=== PATIENT | male | born 1940 | race Caucasian/White ===

== ENCOUNTER 2020-01-01 21:46 | Inpatient (IN) | payer OTHER ==
[~2020-01-01] VITALS: Ht 170.2 cm; Wt 84.8 kg
[2020-01-01 22:12] VITALS: BP_SYST 127
--- NOTE | 2020-01-01 22:12 | NUR ---
Placed in room 04 . Placed on customer support analyst, blood pressure machine and pulse oximeter. To gown for exam. Side rails up. Report given to ABHILASH Chung
--- NOTE | 2020-01-01 22:28 | NUR ---
Dr. Sabillon bedside for pt eval
[2020-01-01] MEDS ORDERED: NACL 0.9% 1,000 ML IV ONE (22:29)
[2020-01-01] MEDS ORDERED: cefTRIAXone 1 GM IVPB PREMIX 50 ML IV ONE (22:30)
--- NOTE | 2020-01-01 22:43 | NUR ---
Pt BIB family to ED having history of 20% ejection fraction, stage III kidney failure, and non-verbal who was BIB by son in law for a 1 day history of gradual onset, mild shortness of breath. Symptoms associated with swelling to BLE. Patient was recently seen at [facility] for similar symptoms and was recently discharged No other complaints and or injuries noted VSS no s/s of acute distress Resting on gurney rails up
[2020-01-01 23:35] LABS: BASOPHILS % (AUTO) 1.1 % (0.0-2.0); EOSINOPHILS # (AUTO) 0.1 K/uL (0.0-0.4); EOSINOPHILS % (AUTO) 3.7 % (0.0-4.0); HEMATOCRIT 33.5 % (36-54); HEMOGLOBIN 10.9 g/dL (14.0-18.0); LYMPHOCYTES % (AUTO) 23.6 % (20.5-51.5); MEAN CORPUSCULAR HEMOGLOBIN 28 pg (27-31); MEAN CORPUSCULAR HGB CONC 33 % (32-36); MEAN CORPUSCULAR VOLUME 86 fL (79.0-98.0); MONOCYTES # (AUTO) 0.3 K/uL (0.0-1.0); MONOCYTES % (AUTO) 8.4 % (1.7-9.3); NEUTROPHILS # (AUTO) 2.6 K/uL (1.8-7.7); NEUTROPHILS % (AUTO) 63.2 % (40.0-70.0); PLATELET COUNT (AUTO) 177 K/uL (130-430); WHITE BLOOD COUNT (AUTO) 4.1 K/uL (4.8-10.8)
[2020-01-01 23:53] LABS: ANION GAP 9 (5-15); CALCIUM 8.6 mg/dL (8.4-11.0); CHLORIDE 101 mmol/L (98-107); GLUCOSE 160 mg/dL (70-99); POTASSIUM 4.8 mmol/L (3.5-5.1); SODIUM SERUM 135 mmol/L (136-145); UREA NITROGEN, BLOOD 49 mg/dL (8-21)
--- NOTE | 2020-01-02 | NUR ---
pt family member bedside for support, VSS no s/s of acute distress Resting on gurney rails up
[2020-01-02 00:06] LABS: ALANINE AMINOTRANSFERASE 27 U/L (12-78); ALBUMIN 3.2 g/dL (3.4-4.8); AMYLASE 53 U/L (0-100); ASPARTATE AMINOTRANSFERASE 40 U/L (10-37); LIPASE 159 U/L (73-393); TOTAL BILIRUBIN 0.6 mg/dL (0.0-1.0)
[2020-01-02] MEDS ORDERED: SACU1TAB7 PO (00:15)
[2020-01-02] MEDS ORDERED: COR6.25 PO (00:15)
[2020-01-02] MEDS ORDERED: ASPI-1153 PO (00:18)
[2020-01-02] MEDS ORDERED: CLOP75TA32 PO (00:18)
[2020-01-02] MEDS ORDERED: FURO-150 PO (00:18)
--- NOTE | 2020-01-02 00:19 | NUR ---
Medication reconciliation completed with information provided by family. Any prior medication reconciliation on file was reviewed and corrected.
[2020-01-02 00:43] LABS: INR 1.1 (0.80-1.20); PROTHROMBIN TIME 11.4 SECS (9.5-12.5)
--- NOTE | 2020-01-02 01:20 | NUR ---
Pt family verbalized "feeling a little better."
[2020-01-02] MEDS ORDERED: FUROSEMIDE 40 MG/4 ML VIAL IVP ONE ×2 (01:30→09:30)
[2020-01-02] MEDS ORDERED: ACETAMINOPHEN 325 MG TABLET PO PRN (01:45)
--- NOTE | 2020-01-02 02:11 | NUR ---
ADMISSION: The patient, SHAHIDA DONNELLY, 79 y/o, M admitted by DR LACKEY , with the diagnosis of CHF EXACERBATION AND ELEVATED TROPONIN to room 133 A , family at bedside .
--- NOTE | 2020-01-02 02:11 | NUR ---
Patient will be admitted to care of Dr. Perkins. Admitted to Tele unit. Will go to room 133. Belongings list completed. Complete and up to date summary report printed. SBAR report to be given at bedside with opportunity for questions.
--- NOTE | 2020-01-02 02:11 | NUR ---
Transfer to Telemetry via ACLS protocol. Licensed nurse present. IV present no signs or symptoms of infiltration.
[2020-01-02 02:18] VITALS: BP_SYST 117
--- NOTE | 2020-01-02 02:30 | NUR ---
INITIAL NOTES: PT IS SLEEPING , EASILY AROUSABLE TO NAME CALLED ; PER FAMILY PT IS NONVERBAL , SYRIAC SPEAKING ORIGINALLY ; ASSESSMENT DONE ; PT IS ON ROOM AIR , VITALS ARE STABLE ; RECEIVED INFORMATION FROM SON IN LAW AIDE ; IV TO THE LEFT HAND 22 G , NO S/S OF ANY INFILTRATION NOTICED ; BED IN LOW AND LOCK POSITION , CALL DIAZ IN REACH ; WILL CONTINUE TO MONITOR PT . 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 SON IN LAW TOOK PTS BELONGINGS TO HOME EXCEPT JACKET .
[2020-01-02 03:47] LABS: BILIRUBIN,URINE NEGATIVE (NEGATIVE); BLOOD, URINE 3+ (NEGATIVE); CLARITY/URINE CLEAR (CLEAR); COLOR,URINE YELLOW (YELLOW); GLUCOSE,URINE NEGATIVE (NEGATIVE); KETONES,URINE NEGATIVE (NEGATIVE); LEUKOCYTE ESTERASE ,URINE TRACE (NEGATIVE); NITRITE, URINE NEGATIVE (NEGATIVE); PROTEIN URINE 2+ (NEGATIVE); UROBILINOGEN,URINE 0.2 (0.2-1.0)
[2020-01-02 03:57] LABS: BACTERIA,URINE MODERATE /HPF (None Seen); WBC,URINE >100 /HPF (0-3)
--- NOTE | 2020-01-02 04:10 | NUR ---
Consultation Paged Reason for Consultation: Elevated Troponin Was consult called: Y Person who was notified: Destiney Consulting Physician: Blayne Carrion Special Events Driver Ordering Physician: Dr. Perkins
--- NOTE | 2020-01-02 04:40 | NUR ---
RN NOTES: PT IS SLEEPING , NOT IN ANY ACUTE DISTRESS ; WILL CONTINUE TO MONITOR PT .
--- NOTE | 2020-01-02 06:00 | NUR ---
RN ROUNDS: PT IS SLEEPING , RESPIRATION IS EVEN AND NON LABORED ; WILL CONTINUE TO MONITOR PT .
--- NOTE | 2020-01-02 06:41 | NUR ---
PERINEAL CARE : PT IS INCONTINENT WITH URINE , PT CLEANED , LINEN ,JEAN AND GOWN CHANGED ; PT MADE COMFORTABLE ; WILL CONTINUE TO MONITOR PT .
--- NOTE | 2020-01-02 07:20 | NUR ---
INITIAL NOTE PT AWAKE, RESTING IN BED. BLOOD DRAW BEING DONE AT BEDSIDE. IV SALINE LOCKED. CALL LIGHT WITHIN REACH, BED IN LOW AND LOCKED POSITION WITH BED ALARM ON.
--- NOTE | 2020-01-02 07:20 | NUR ---
CLOSING NOTES: REPORT GIVEN TO RN AT BEDSIDE ; ALL NEEDS ATTENDED ; NOT IN ANY ACUTE DISTRESS.
[2020-01-02 08:00] VITALS: BP_SYST 128
[2020-01-02 08:16] LABS: ANION GAP 8 (5-15); CALCIUM 8.3 mg/dL (8.4-11.0); CHLORIDE 101 mmol/L (98-107); GLUCOSE 162 mg/dL (70-99); POTASSIUM 4.3 mmol/L (3.5-5.1); SODIUM SERUM 135 mmol/L (136-145); UREA NITROGEN, BLOOD 47 mg/dL (8-21)
--- NOTE | 2020-01-02 08:56 | NUR ---
DR. ETIENNE/CRITICAL LAB MD AT BEDSIDE EXAMINING PT. INFORMED MD OF CRITICAL TROPONIN 0.152, TROPONIN IS TRENDING DOWN. MD TO PUT IN NEW ORDERS.
[2020-01-02] MEDS: cefTRIAXone 1 GM in D5W 50 ML IV SCH (08:58)
[2020-01-02] MEDS ORDERED: CARVEDILOL 6.25 MG TABLET (COREG) PO ONE (09:00)
[2020-01-02] MEDS ORDERED: ASPIRIN 81 MG TABLET(ECOTRIN) PO ONE (09:00)
[2020-01-02] MEDS ORDERED: CLOPIDOGREL BISULFATE 75 MG TABLET PO ONE (09:00)
--- NOTE | 2020-01-02 09:04 | NUR ---
Nutrition Update Dean Scale 15 noted. Pt admitted for CHF, elevated troponin. Diet: 2 gm Na, chopped BMI: 31.3 kg/m2 RD to follow per nutrition care standards.
--- NOTE | 2020-01-02 09:30 | NUR ---
RN ROUNDS NO CHANGE IN ASSESSMENT. WILL CONTINUE TO MONITOR.
--- NOTE | 2020-01-02 09:44 | NUR ---
2D ECHO BEING DONE AT BEDSIDE PT AWAKE, NO ACUTE DISTRESS NOTED, DOSE OF LASIX IVP ADMINISTERED.
[2020-01-02] MEDS ORDERED: FUROSEMIDE 40 MG TABLET PO ONE (09:45)
--- NOTE | 2020-01-02 10:43 | NUR ---
DR. DARYA REBOLLEDO AT BEDSIDE EXAMINING PT. WOULD LIKE FOR FAMILY TO SIGN CONSENT TO DISCLOSE OF HEALTH RECORDS FROM [facility]. WILL ATTEMPT TO REACH DAUGHTER.
--- NOTE | 2020-01-02 11:30 | NUR ---
DR. LACKEY/CRITICAL LAB SPOKE WITH MD AT NURSES STATION, INFORMED MD OF CRITICAL TROPONIN 0.147. MD TO CONTINUE CURRENT POC.
--- NOTE | 2020-01-02 11:35 | NUR ---
RN ROUNDS READJUSTED GOWN, REPOSITIONED PT SEMI FOWLERS. NO ACUTE DISTRESS NOTED. PT RESTING QUIETLY.
[2020-01-02 12:57] VITALS: BP_SYST 118
--- NOTE | 2020-01-02 13:45 | NUR ---
RN ROUNDS PT RESTING QUIETLY, NO CHANGE IN ASSESSMENT, WILL CONTINUE TO MONITOR.
--- NOTE | 2020-01-02 14:50 | NUR ---
BACK FROM OR RECEIVED PT VIA [employer]. PT RUNNING FEVER 100.5. PT HAS ICE PACKS. IVF INFUSING WELL. AT BEDSIDE. MOVED PT TO ROOM 126A Addendum: 01/02/20 at 1551 by Cinthya Carter RN DISREGARD NOTE, WRONG PT ENTRY.
--- NOTE | 2020-01-02 15:40 | NUR ---
INCONTINENT OF URINE CHANGED LINEN AND PATIENT. REPOSITIONED FOR COMFORT.
[2020-01-02 16:17] VITALS: BP_SYST 121
--- NOTE | 2020-01-02 17:40 | NUR ---
RN ROUNDS DAUGHTER AT BEDSIDE, DAUGHTER SIGNED CONSENT TO RECEIVE HEALTH RECORDS FROM [facility]. PT AWAKE, NO ACUTE DISTRESS NOTED
--- NOTE | 2020-01-02 18:32 | NUR ---
CLOSING NOTE PT AWAKE, NO ACUTE DISTRESS NOTED, FAMILY AT BEDSIDE. FAMILY STATES PT IS CONTENT AND ENJOYS THE FOOD. PT DENIES ANY PAIN OR DISCOMFORT AT THIS TIME. IV SALINE LOCKED. CALL LIGHT WITHIN REACH, BED IN LOW AND LOCKED POSITION WITH BED ALARM ON.
--- NOTE | 2020-01-02 19:30 | NUR ---
Opening notes Received report. Patient is resting in bed, no signs of distress noted. Breathing even and unlabored. IV patent and intact, no signs of infiltration noted. No needs at this time. Daughters at the bedside. call light with the patient. Safety precautions in place.
[2020-01-02 20:00] VITALS: BP_SYST 108
--- NOTE | 2020-01-02 21:30 | NUR ---
Medications given. Educated the action and side effects of medication. Patient tolerated well. Patient ambulated to bathroom with assist to urinate. Patient back in bed. Call light with the patient. Safety precautions in place.
[2020-01-02] MEDS: CARVEDILOL 6.25 MG TABLET (COREG) PO SCH (21:52)
[2020-01-03 00:26] VITALS: BP_SYST 116
--- NOTE | 2020-01-03 00:30 | NUR ---
Ambulated to bathroom with assistance to urinate. Patient back in bed. No other needs. Call light with the patient. Safety precautions in place. Call light with the patient. Safety precautions in place.
--- NOTE | 2020-01-03 02:53 | NUR ---
Pain Patient complaining of pain to lower legs. PRN pain medication given. Educated the action and side effects of medication. Patient tolerated well. Patient sitting up in bed. Call light with the patient. Safety precautions in place.
--- NOTE | 2020-01-03 04:21 | NUR ---
Ambulated to bathroom with assist to urinate. Patient back to bed and went to sleep. No other needs. Call light with the patient. Safety precautions in place.
[2020-01-03 06:46] LABS: ALANINE AMINOTRANSFERASE 23 U/L (12-78); ALBUMIN 2.9 g/dL (3.4-4.8); ANION GAP 7 (5-15); ASPARTATE AMINOTRANSFERASE 25 U/L (10-37); CALCIUM 8.9 mg/dL (8.4-11.0); CHLORIDE 99 mmol/L (98-107); CHOLESTEROL 132 mg/dL (<200); CREATININE 1.88 mg/dL (0.55-1.30); GLUCOSE 169 mg/dL (70-99); HDL CHOLESTEROL 56 mg/dL (>45); LDL CHOLESTEROL 54 mg/dL (<100); POTASSIUM 4.7 mmol/L (3.5-5.1); SODIUM SERUM 133 mmol/L (136-145); TOTAL BILIRUBIN 0.6 mg/dL (0.0-1.0); TRIGLYCERIDES 76 mg/dL (30-150); UREA NITROGEN, BLOOD 49 mg/dL (8-21)
--- NOTE | 2020-01-03 06:50 | NUR ---
Closing notes Patient is resting in bed. No signs of distress noted. Breathing even and unlabored. IV patent and intact, no signs of infiltration noted. Patient is refusing telemetry heart monitor at this time. Will inform MD. All needs met throughout the shift. Call light with the patient. Safety precautions in place. Will endorse care to day shift RN.
[2020-01-03 06:51] LABS: BASOPHILS % (AUTO) 0.4 % (0.0-2.0); EOSINOPHILS # (AUTO) 0.1 K/uL (0.0-0.4); EOSINOPHILS % (AUTO) 3.2 % (0.0-4.0); HEMOGLOBIN 10.7 g/dL (14.0-18.0); LYMPHOCYTES # (AUTO) 0.8 K/uL (1.0-5.5); LYMPHOCYTES % (AUTO) 20.8 % (20.5-51.5); MEAN CORPUSCULAR HEMOGLOBIN 28 pg (27-31); MEAN CORPUSCULAR HGB CONC 32 % (32-36); MEAN CORPUSCULAR VOLUME 87 fL (79.0-98.0); MONOCYTES # (AUTO) 0.3 K/uL (0.0-1.0); MONOCYTES % (AUTO) 8.7 % (1.7-9.3); NEUTROPHILS # (AUTO) 2.7 K/uL (1.8-7.7); NEUTROPHILS % (AUTO) 66.9 % (40.0-70.0); PLATELET COUNT (AUTO) 166 K/uL (130-430); RED BLOOD CELL COUNT(AUTO) 3.81 MIL/uL (4.2-6.2); RED CELL DISTRIBUTION WIDTH 17.6 % (9.0-15.0)
--- NOTE | 2020-01-03 07:25 | NUR ---
INITIAL NOTE PT RESTING QUIETLY IN BED, NO ACUTE DISTRESS NOTED, BREATHING EVEN AND UNLABORED. IV SALINE LOCKED. BED IN LOW AND LOCKED POSITION WITH BED ALARM ON.
[2020-01-03 07:57] LABS: THYROID STIMULATING HORMONE 12.44 uIu/mL (0.36-3.74)
[2020-01-03 08:00] VITALS: BP_SYST 133
[2020-01-03] MEDS: cefTRIAXone 1 GM in D5W 50 ML IV SCH (08:53)
[2020-01-03] MEDS: LEVOTHYROXINE SODIUM 0.025 MG TABLET PO SCH (08:54)
[2020-01-03] MEDS: FUROSEMIDE 40 MG/4 ML VIAL IVP SCH (08:54)
[2020-01-03] MEDS: ASPIRIN 81 MG TABLET(ECOTRIN) PO SCH (08:54)
[2020-01-03] MEDS: CARVEDILOL 6.25 MG TABLET (COREG) PO SCH ×2 (08:54→21:55)
[2020-01-03] MEDS: CLOPIDOGREL BISULFATE 75 MG TABLET PO SCH (08:54)
--- NOTE | 2020-01-03 09:30 | NUR ---
RN ROUNDS PT RESTING IN BED, IV ANTIBIOTICS INFUSING. PT CONTINUES TO REFUSED TELEMETRY BOX. WILL REATTEMPT LATER.
--- NOTE | 2020-01-03 11:30 | NUR ---
RN ROUNDS PT ATTEMPTING TO REMOVED IV ACCESS. DISCONNECTED PT FROM IV LINE. IV SALINE LOCKED. PT SITTING AT EDGE OF BED. NO ACUTE DISTRESS NOTED.
[2020-01-03 12:30] VITALS: BP_SYST 112
--- NOTE | 2020-01-03 13:30 | NUR ---
RN ROUNDS PT SITTING UP IN BED, NO CHANGE IN ASSESSMENT. WILL CONTINUE TO MONITOR.
--- NOTE | 2020-01-03 14:36 | NUR ---
PT AMBULATING HALLWAY REORIENTED PT BACK TO ROOM. BROUGHT FRONT WHEEL WALKER TO PT. PLACED HOSPITAL SOCKS ON PT. REPOSITIONED BACK TO BED.
[2020-01-03 16:35] VITALS: BP_SYST 109
--- NOTE | 2020-01-03 17:45 | NUR ---
DR. LACKEY SPOKE WITH MD AT NURSING STATION. INFORMED MD PT WAS AMBULATING TODAY USING FRONT WHEEL WALKER, PT REFUSING TELE BOX, PT PULLED IV AND REFUSING IV ACCESS AT THIS TIME. PT GETS [place] IVPB DAILY. INFORMED MD THAT FAMILY MENTIONED THAT PT HAS NOT HAD A BOWEL MOVEMENT SINCE THE . MD TO PUT IN NEW ORDERS. HOSPITAL RECORDS OBTAIN AND GIVEN TO .
--- NOTE | 2020-01-03 18:31 | NUR ---
CLOSING NOTE PT SITTING UP IN BED EATING DINNER. NO ACUTE DISTRESS NOTED. NO IV ACCESS, AWARE THAT PT PULLED OUT IV AND IS REFUSING IV ACCESS. PT TO BE DOWN GRADED TO MED SURG. CALL LIGHT WITHIN REACH, BED IN LOW AND LOCKED POSITION WITH BED ALARM ON. ALL NEEDS MET THROUGHOUT SHIFT. WILL CONTINUE TO MONITOR UNTIL PT CARE IS ENDORSED TO E COMMERCE SPECIALIST RN.
--- NOTE | 2020-01-03 19:30 | NUR ---
Opening notes Received report. Patient is resting in bed, no signs of distress noted. Breathing even and unlabored. Son in law talking to patient. No IV access. MD aware. Dr. Perkins stated to keep patient telemetry as family will try to convince patient that he needs his heart to be monitored. No needs at this time. Call light with the patient. Safety precautions in place.
[2020-01-03 20:28] VITALS: BP_SYST 119
--- NOTE | 2020-01-03 21:30 | NUR ---
Medications given. Educated the action and side effects of medications to patient and daughter. Daughter verbalized understanding. monitoring coordinator placed on patient. Patient still refusing IV. Daughter stated it may be best to try IV in the morning, so he won't pull it out again. Family fed patient outside food. Patient tolerated well. No other needs. Call light with the patient. Safety precautions in place.
[2020-01-03] MEDS: INSULIN LISPRO SLIDING SCALE 100 UNITS/ML VIAL (humaLOG) SUBCUT PRN (21:59)
[2020-01-03 23:24] VITALS: BP_SYST 122
--- NOTE | 2020-01-03 23:30 | NUR ---
Resting Patient is resting, no signs of distress noted. Breathing even and unlabored. Daughter went home and stated she will be back early in the morning. No needs at this time. Call light with the patient. Safety precautions in place.
--- NOTE | 2020-01-04 01:30 | NUR ---
Ambulated to bathroom using walker to urinate and patient had a smear of BM. Hygiene care provided. Assistance was needed when helping patient off toilet. Patient back in bed and went to sleep. No other needs. call light with the patient. Safety precautions in place.
--- NOTE | 2020-01-04 03:54 | NUR ---
Sleeping No signs of distress noted. Breathing even and unlabored. Call light with the patient. Safety precautions in place.
[2020-01-04] MEDS: LEVOTHYROXINE SODIUM 0.025 MG TABLET PO SCH (06:36)
[2020-01-04 06:38] LABS: ALANINE AMINOTRANSFERASE 21 U/L (12-78); ALBUMIN 2.7 g/dL (3.4-4.8); ANION GAP 7 (5-15); ASPARTATE AMINOTRANSFERASE 27 U/L (10-37); CALCIUM 8.5 mg/dL (8.4-11.0); CHLORIDE 101 mmol/L (98-107); CREATININE 1.71 mg/dL (0.55-1.30); GLUCOSE 142 mg/dL (70-99); POTASSIUM 4.6 mmol/L (3.5-5.1); SODIUM SERUM 136 mmol/L (136-145); TOTAL BILIRUBIN 0.4 mg/dL (0.0-1.0); UREA NITROGEN, BLOOD 52 mg/dL (8-21)
[2020-01-04] MEDS: INSULIN LISPRO SLIDING SCALE 100 UNITS/ML VIAL (humaLOG) SUBCUT PRN ×2 (06:38→11:46)
--- NOTE | 2020-01-04 06:57 | NUR ---
Closing notes Patient is resting comfortably in bed, no signs of distress noted. Breathing even and unlabored. No complaints of pain noted. Patient still refusing IV. Daughter stated she will come in to talk to patient in inserting IV. Accucheck 151. Insulin given per sliding scale. All needs met throughout the shift. Call light with the patient. Safety precautions in place. will endorse care to day shift RN.
--- NOTE | 2020-01-04 08:00 | NUR ---
Initial notes- In bed, awake, alert. speak macedonian only. In no acute distress noted. NO IV access. will start a new one. Sitter at bedside. Pt ambulates with Front wheel walker with assistance to the bathroom. on o2 2l, tolerating well. will continue to monitor.
[2020-01-04 08:10] VITALS: BP_SYST 118
[2020-01-04] MEDS: cefTRIAXone 1 GM in D5W 50 ML IV SCH (09:48)
[2020-01-04] MEDS: CLOPIDOGREL BISULFATE 75 MG TABLET PO SCH (09:49)
[2020-01-04] MEDS: FUROSEMIDE 40 MG/4 ML VIAL IVP SCH (09:49)
[2020-01-04] MEDS: ASPIRIN 81 MG TABLET(ECOTRIN) PO SCH (09:49)
[2020-01-04] MEDS: CARVEDILOL 6.25 MG TABLET (COREG) PO SCH ×2 (09:50→21:58)
--- NOTE | 2020-01-04 10:00 | NUR ---
Iv started on the right wrist no.22. pt tolerated well. IV antibiotics and lasix given. pt takes meds without difficulty.
[2020-01-04 11:55] VITALS: BP_SYST 118
--- NOTE | 2020-01-04 12:00 | NUR ---
Notes- Resting in bed, family at bedside. No acute distress noted. Ambulate with physical therapy.
--- NOTE | 2020-01-04 15:22 | NUR ---
Notes- ambulate to the bathroom with fww and voided good amount of urine. tolerated well.
--- NOTE | 2020-01-04 15:31 | NUR ---
Dietitian Recommendations * Recommend continuing 2 gm Na, chopped diet * No further dietary restrictions warranted d/t geriatric age LP, RD Please refer to Nutrition Assessment for details. Addendum: 01/04/20 at [address] Amended: Links added.
[2020-01-04 16:02] VITALS: BP_SYST 119
--- NOTE | 2020-01-04 18:40 | NUR ---
closing notes- In bed awake, family at bedside. No acute distress noted. pt has been calm and cooperative the whole day. All needs meet. will endorse
--- NOTE | 2020-01-04 19:20 | NUR ---
initial notes: pt is on bed, sleeping, no sign of pain. no distress. no sob, pt is spanish speaking only. pt iv lock to right wrist is occluded. stable. side rails up. low bed position. call ight in reach. bed alarm on. will monitor.
[2020-01-04 19:36] VITALS: BP_SYST 117
--- NOTE | 2020-01-04 21:00 | NUR ---
pt wakes up. assisted to bathroom use walker. no pain. back to bed, needs atetned. safety on. bed alarm on. will monitor.
[2020-01-05] VITALS (8 sets, daily range): BP systolic 121–135
--- NOTE | 2020-01-05 | NUR ---
assisted to bathroom back to bed tolerate well. needs attende. bed alarm on.
--- NOTE | 2020-01-05 02:12 | NUR ---
sleeping, comfortable. no pain, no sob. luc[facility]
--- NOTE | 2020-01-05 04:10 | NUR ---
sleeping, comfortable. no pain, no sob. bed alarm on, safety precaution placed.
--- NOTE | 2020-01-05 05:59 | NUR ---
pt is awake, alert, talking in macedonian. no distress. no pain. stable. will checj blood sugar and give am medication that is due.
[2020-01-05] MEDS: LEVOTHYROXINE SODIUM 0.025 MG TABLET PO SCH (06:20)
[2020-01-05] MEDS: INSULIN LISPRO SLIDING SCALE 100 UNITS/ML VIAL (humaLOG) SUBCUT PRN ×2 (06:23→19:22)
--- NOTE | 2020-01-05 07:05 | NUR ---
closing: pt is resting, no acute distress, no pain. stable the whole shift. iv lock to right fore arn gauge 20-intact and patent. needs attended the whole shift, safety precaution in placed, will given bedside report to incoming am rn.
[2020-01-05] MEDS: FUROSEMIDE 40 MG/4 ML VIAL IVP SCH (08:05)
[2020-01-05] MEDS: cefTRIAXone 1 GM in D5W 50 ML IV SCH (08:05)
[2020-01-05] MEDS: CARVEDILOL 6.25 MG TABLET (COREG) PO SCH ×2 (08:06→21:06)
[2020-01-05] MEDS: CLOPIDOGREL BISULFATE 75 MG TABLET PO SCH (08:06)
[2020-01-05] MEDS: ASPIRIN 81 MG TABLET(ECOTRIN) PO SCH (08:06)
[2020-01-05 09:14] LABS: ALANINE AMINOTRANSFERASE 23 U/L (12-78); ANION GAP 6 (5-15); ASPARTATE AMINOTRANSFERASE 32 U/L (10-37); CALCIUM 8.6 mg/dL (8.4-11.0); CHLORIDE 98 mmol/L (98-107); CREATININE 1.68 mg/dL (0.55-1.30); GLUCOSE 180 mg/dL (70-99); POTASSIUM 4.5 mmol/L (3.5-5.1); SODIUM SERUM 132 mmol/L (136-145); TOTAL BILIRUBIN 0.5 mg/dL (0.0-1.0); UREA NITROGEN, BLOOD 52 mg/dL (8-21)
--- NOTE | 2020-01-05 13:45 | NUR ---
Mobility Ambulate to bathroom using FWW with assist tolerates well, no dizziness
--- NOTE | 2020-01-05 14:13 | NUR ---
List of [facility] given to the for follow up, while waiting for the approval of medical insurance. Addendum: 01/07/20 at 1232 by Nunu Chamorro RN instructed to make an appointment in the [facility] of choice , no medical insurance.
[2020-01-05] MEDS ORDERED: FURO-150 PO (14:54)
[2020-01-05] MEDS ORDERED: LEVO25TA7 PO (15:15)
[2020-01-05] MEDS ORDERED: COR6.25 PO (15:16)
[2020-01-05] MEDS ORDERED: CEPH-568 PO (15:16)
[2020-01-05] MEDS ORDERED: GLIM1TAB PO (15:17)
--- NOTE | 2020-01-05 19:20 | NUR ---
initial notes: pt is on bed, awake,alert.no sign of pain. no distress. no sob, pt is belarusian speaking only. pt iv lock to right forearm is intact and patent.vital sign are stable. needs attended side rails up. low bed position. call light in reach. bed alarm on. will wait for family to picking machine operator helper pt for discharge tonight.
--- NOTE | 2020-01-05 19:50 | NUR ---
[id number] Pt received awoke alert Faroese speaking, able to make needs known. Denied having pain throughout my shift. Family came at noon. Pt c/o wanting to go home PCP called and, came to see the pt and ordered discharge to home. Daughter called by charge nurse. Daughter suppose to come warehouse picker pt later on tonight. Pt is resting comfortably in bed awoke VSS Endorsed to night baker nurse.
--- NOTE | 2020-01-05 20:26 | NUR ---
assisted pt to bathroom and cleaning, change gown. back to bed. pt tolerate well.
--- NOTE | 2020-01-05 21:53 | NUR ---
D/C Patient Patient and his grandson chitra given medication reconciliation form and D/C instructions. Exit Care provided. Patient's grandson chitra verbalized understanding. Ambulatory with steady gait for discharge to home. Patient in stable condition, ID band removed. IV catheter removed, intact and dressing applied, no active bleeding. Rx of given. Patient's grand son educated on pain management, follow-up with md and medication. All belongings sent with patient.
--- NOTE | 2020-01-08 15:34 | NUR ---
Discharge Follow Up Phone Call Phoned patient, . No answer, voicemail full.
== END 2020-01-05 21:53 | disposition home or self-care (01) | DRG 291 ==
LOC: SED 21:46 → STU 01-02 01:52
PROVIDERS: ADMIT Internal Medicine; ATTEND Internal Medicine
DX: I50.43 Acute on chronic combined systolic (congestive) and diastolic (congestive) heart failure (principal); N17.0 Acute kidney failure with tubular necrosis; N39.0 Urinary tract infection, site not specified; I42.0 Dilated cardiomyopathy; I69.351 Hemiplegia and hemiparesis following cerebral infarction affecting right dominant side; N18.3 Chronic kidney disease, stage 3 (moderate); E11.65 Type 2 diabetes mellitus with hyperglycemia; F03.90 Unspecified dementia, unspecified severity, without behavioral disturbance, psychotic disturbance, mood disturbance, and anxiety; E03.9 Hypothyroidism, unspecified; K74.60 Unspecified cirrhosis of liver; I69.320 Aphasia following cerebral infarction; I25.2 Old myocardial infarction; Z79.899 Other long term (current) drug therapy; Z79.82 Long term (current) use of aspirin
CPT/HCPCS: 36415; 36600; 71045; 76770; 80048; 80053; 80061; 81000-TC; 82150-TC; 82550-TC; 82803-TC; 82962; 83605; 83690-TC; 83735-TC; 83880; 84443-TC; 84484; 85025; 85610-TC; 85730-TC; 87040-TC; 87081; 87086; 87186-TC; 93306; 96365; 96375; 99285; G0378; J0696; J1940; J7030; J7060

== ENCOUNTER 2020-02-14 13:38 | Emergency (ER) | payer MEDICARE, MEDICAID ==
[~2020-02-14] VITALS: Ht 172.7 cm; Wt 72.6 kg
[~2020-02-14 13:38] MED LIST: ASPI-1153 PO; CEPH-568 PO; CLOP75TA32 PO; COR6.25 PO; FURO-150 PO; GLIM1TAB PO; LEVO25TA7 PO; SACU1TAB7 PO
[2020-02-14 13:55] VITALS: BP_SYST 147
[2020-02-14] MEDS ORDERED: ONDANSETRON 4 MG ODT TAB PO ONE (14:15)
[2020-02-14 14:37] LABS: BASOPHILS % (AUTO) 0.8 % (0.0-2.0); HEMATOCRIT 32.2 % (36-54); HEMOGLOBIN 10.7 g/dL (14.0-18.0); LYMPHOCYTES # (AUTO) 0.6 K/uL (1.0-5.5); LYMPHOCYTES % (AUTO) 19.1 % (20.5-51.5); MEAN CORPUSCULAR HEMOGLOBIN 28 pg (27-31); MEAN CORPUSCULAR HGB CONC 33 % (32-36); MEAN CORPUSCULAR VOLUME 85 fL (79.0-98.0); MONOCYTES # (AUTO) 0.2 K/uL (0.0-1.0); MONOCYTES % (AUTO) 7.1 % (1.7-9.3); NEUTROPHILS # (AUTO) 2.4 K/uL (1.8-7.7); PLATELET COUNT (AUTO) 200 K/uL (130-430); RED CELL DISTRIBUTION WIDTH 15.3 % (9.0-15.0); WHITE BLOOD COUNT (AUTO) 3.4 K/uL (4.8-10.8)
[2020-02-14 14:47] LABS: ANION GAP 12 (5-15); CALCIUM 8.3 mg/dL (8.4-11.0); CHLORIDE 98 mmol/L (98-107); CREATININE 2.18 mg/dL (0.55-1.30); GLUCOSE 264 mg/dL (70-99); POTASSIUM 4.3 mmol/L (3.5-5.1); SODIUM SERUM 134 mmol/L (136-145); UREA NITROGEN, BLOOD 87 mg/dL (8-21)
[2020-02-14 14:53] LABS: ALANINE AMINOTRANSFERASE 22 U/L (12-78); ALBUMIN 3.3 g/dL (3.4-4.8); AMYLASE 55 U/L (0-100); ASPARTATE AMINOTRANSFERASE 23 U/L (10-37); LACTATE DEHYDROGENASE 135 U/L (85-227); LIPASE 156 U/L (73-393); TOTAL BILIRUBIN 0.7 mg/dL (0.0-1.0)
[2020-02-14 14:57] LABS: INR 1.1 (0.80-1.20); PROTHROMBIN TIME 11.3 SECS (9.5-12.5)
[2020-02-14] MEDS ORDERED: MORPHINE SULFATE 10 MG/ML VIAL IM ONE (15:00)
[2020-02-14 16:04] VITALS: BP_SYST 136
[2020-02-14 16:34] LABS: BILIRUBIN,URINE NEGATIVE (NEGATIVE); BLOOD, URINE NEGATIVE (NEGATIVE); CLARITY/URINE CLEAR (CLEAR); COLOR,URINE YELLOW (YELLOW); GLUCOSE,URINE 1+ (NEGATIVE); KETONES,URINE NEGATIVE (NEGATIVE); LEUKOCYTE ESTERASE ,URINE NEGATIVE (NEGATIVE); NITRITE, URINE NEGATIVE (NEGATIVE); PROTEIN URINE 2+ (NEGATIVE); UROBILINOGEN,URINE 0.2 (0.2-1.0)
[2020-02-14 16:47] LABS: BACTERIA,URINE FEW /HPF (None Seen); MUCUS,URINE None Seen /LPF (None Seen); RBC,URINE 0-3 /HPF (0-3); WBC,URINE 0-3 /HPF (0-3)
== END 2020-02-14 16:04 | disposition home or self-care (01) ==
LOC: SED 13:38
DX: K80.50 Calculus of bile duct without cholangitis or cholecystitis without obstruction (principal); Z79.82 Long term (current) use of aspirin; Z79.899 Other long term (current) drug therapy
CPT/HCPCS: 36415; 74176; 80053; 81000; 82150; 83605; 83615; 83690; 85025; 85610; 85730; 93005; 96372; 99285; J2270; Q0162

== ENCOUNTER 2020-03-04 13:56 | Emergency (ER) | payer MEDICARE, MEDICAID ==
[~2020-03-04] VITALS: Ht 180.3 cm; Wt 120.2 kg
[2020-03-04 14:14] VITALS: BP_SYST 121
[2020-03-04 14:31] LABS: BASOPHILS % (AUTO) 0.6 % (0.0-2.0); EOSINOPHILS # (AUTO) 0.1 K/uL (0.0-0.4); EOSINOPHILS % (AUTO) 1.9 % (0.0-4.0); HEMATOCRIT 26.7 % (36-54); HEMOGLOBIN 8.8 g/dL (14.0-18.0); LYMPHOCYTES # (AUTO) 0.8 K/uL (1.0-5.5); LYMPHOCYTES % (AUTO) 20.4 % (20.5-51.5); MEAN CORPUSCULAR HEMOGLOBIN 29 pg (27-31); MEAN CORPUSCULAR HGB CONC 33 % (32-36); MEAN CORPUSCULAR VOLUME 87 fL (79.0-98.0); MONOCYTES # (AUTO) 0.5 K/uL (0.0-1.0); MONOCYTES % (AUTO) 11.7 % (1.7-9.3); NEUTROPHILS # (AUTO) 2.6 K/uL (1.8-7.7); NEUTROPHILS % (AUTO) 65.4 % (40.0-70.0); PLATELET COUNT (AUTO) 119 K/uL (130-430); RED BLOOD CELL COUNT(AUTO) 3.08 MIL/uL (4.2-6.2); RED CELL DISTRIBUTION WIDTH 14.9 % (9.0-15.0); WHITE BLOOD COUNT (AUTO) 3.9 K/uL (4.8-10.8)
[2020-03-04] MEDS: FUROSEMIDE 20 MG TABLET PO ONE (14:56)
[2020-03-04 15:14] LABS: ANION GAP 8 (5-15); CHLORIDE 101 mmol/L (98-107); CREATININE 2.19 mg/dL (0.55-1.30); GLUCOSE 133 mg/dL (70-99); POTASSIUM 5.2 mmol/L (3.5-5.1); SODIUM SERUM 135 mmol/L (136-145); UREA NITROGEN, BLOOD 65 mg/dL (8-21)
[2020-03-04 15:19] LABS: ALANINE AMINOTRANSFERASE 35 U/L (12-78); ALBUMIN 2.9 g/dL (3.4-4.8); ASPARTATE AMINOTRANSFERASE 31 U/L (10-37); TOTAL BILIRUBIN 0.5 mg/dL (0.0-1.0)
[2020-03-04] MEDS ORDERED: LIP80 PO (15:34)
[2020-03-04] MEDS ORDERED: FURO-150 PO (15:34)
[2020-03-04] MEDS: DEXTROSE 50% JECT 50 ML DISP.SYRIN IVP ONE ×3 (16:00→19:17)
[2020-03-04] MEDS: INSULIN REGULAR, HUMAN 10 UNITS/0.1 ML INJ IVP ONE (16:06)
[2020-03-04 16:37] LABS: BILIRUBIN,URINE NEGATIVE (NEGATIVE); BLOOD, URINE NEGATIVE (NEGATIVE); COLOR,URINE YELLOW (YELLOW); GLUCOSE,URINE NEGATIVE (NEGATIVE); KETONES,URINE NEGATIVE (NEGATIVE); LEUKOCYTE ESTERASE ,URINE NEGATIVE (NEGATIVE); NITRITE, URINE NEGATIVE (NEGATIVE); PH,URINE 5.5 (5.0-8.0); PROTEIN URINE 2+ (NEGATIVE); UROBILINOGEN,URINE 0.2 (0.2-1.0)
[2020-03-04 17:12] LABS: CLARITY/URINE HAZY (CLEAR)
[2020-03-04 17:36] LABS: BACTERIA,URINE FEW /HPF (None Seen); RBC,URINE 0-3 /HPF (0-3); WBC,URINE 0-3 /HPF (0-3)
[2020-03-04 17:38] LABS: MUCUS,URINE 1+ /LPF (None Seen); URINE AMORPHOUS URATE 3+ /HPF (None Seen)
[2020-03-04] MEDS ORDERED: DEXTROSE 50% JECT 50 ML DISP.SYRIN ONE (18:19)
[2020-03-04] MEDS ORDERED: BACITRACIN 1 GM OINT TP ONE (19:43)
[2020-03-04 20:30] VITALS: BP_SYST 146
== END 2020-03-04 20:30 | disposition home or self-care (01) ==
LOC: SED 13:56
DX: S00.03XA Contusion of scalp, initial encounter (principal); D64.9 Anemia, unspecified; N18.9 Chronic kidney disease, unspecified; I50.9 Heart failure, unspecified; E78.00 Pure hypercholesterolemia, unspecified; Z85.3 Personal history of malignant neoplasm of breast; Z79.899 Other long term (current) drug therapy; Z79.82 Long term (current) use of aspirin; W18.39XA Other fall on same level, initial encounter; Y93.89 Activity, other specified; Y92.89 Other specified places as the place of occurrence of the external cause; Y99.8 Other external cause status
CPT/HCPCS: 36415; 70450; 71045; 80053; 81000; 82962; 83880; 84484; 85025; 93005; 96374; 96375; 96376; 99285; J1815

== ENCOUNTER 2020-03-22 00:34 | Inpatient (IN) | payer MEDICAID, MEDICARE ==
[~2020-03-22] VITALS: Ht 170.2 cm; Wt 91.6 kg
[~2020-03-22 00:34] MED LIST changes: -CEPH-568 PO; -GLIM1TAB PO; +LIP80 PO; -SACU1TAB7 PO
[2020-03-22 00:40] VITALS: BP_SYST 141
[2020-03-22] MEDS ORDERED: ASPIRIN 81 MG TAB.CHEW PO ONE (02:15)
[2020-03-22] MEDS ORDERED: FUROSEMIDE 100 MG/10 ML VIAL IVP ONE (02:15)
[2020-03-22 02:38] LABS: HEMATOCRIT 28.6 % (36-54); HEMOGLOBIN 9.5 g/dL (14.0-18.0); MEAN CORPUSCULAR HEMOGLOBIN 29 pg (27-31); MEAN CORPUSCULAR HGB CONC 33 % (32-36); MEAN CORPUSCULAR VOLUME 86 fL (79.0-98.0); PLATELET COUNT (AUTO) 131 K/uL (130-430); RED BLOOD CELL COUNT(AUTO) 3.33 MIL/uL (4.2-6.2); RED CELL DISTRIBUTION WIDTH 14.6 % (9.0-15.0); WHITE BLOOD COUNT (AUTO) 3.7 K/uL (4.8-10.8)
[2020-03-22 02:42] LABS: ANION GAP 9 (5-15); CALCIUM 8.5 mg/dL (8.4-11.0); CHLORIDE 100 mmol/L (98-107); CREATININE 2.31 mg/dL (0.55-1.30); GLUCOSE 141 mg/dL (70-99); POTASSIUM 4.1 mmol/L (3.5-5.1); SODIUM SERUM 135 mmol/L (136-145); UREA NITROGEN, BLOOD 74 mg/dL (8-21)
[2020-03-22 02:46] LABS: ATYPICAL LYMPHOCYTES % 0 % (0-0); BAND % (MANUAL) 0 % (0-6); BASOPHILS % (MANUAL) 1 % (0-2); EOSINOPHILS % (MANUAL) 2 % (0-7); INR 1.1 (0.80-1.20); LYMPHOCYTES % (MANUAL) 18 % (20-46); MONOCYTES % (MANUAL) 19 % (0-11); PROTHROMBIN TIME 11.3 SECS (9.5-12.5)
[2020-03-22 02:47] LABS: ALANINE AMINOTRANSFERASE 55 U/L (12-78); ALBUMIN 3.3 g/dL (3.4-4.8); ASPARTATE AMINOTRANSFERASE 43 U/L (10-37); TOTAL BILIRUBIN 0.5 mg/dL (0.0-1.0)
[2020-03-22 04:18] LABS: BILIRUBIN,URINE NEGATIVE (NEGATIVE); CLARITY/URINE CLEAR (CLEAR); COLOR,URINE YELLOW (YELLOW); GLUCOSE,URINE NEGATIVE (NEGATIVE); KETONES,URINE NEGATIVE (NEGATIVE); LEUKOCYTE ESTERASE ,URINE 2+ (NEGATIVE); NITRITE, URINE NEGATIVE (NEGATIVE); PROTEIN URINE 2+ (NEGATIVE); UROBILINOGEN,URINE 0.2 (0.2-1.0)
[2020-03-22 04:20] LABS: BLOOD, URINE TRACE (NEGATIVE)
[2020-03-22 04:25] LABS: BACTERIA,URINE FEW /HPF (None Seen)
[2020-03-22] MEDS ORDERED: ENOXAPARIN SODIUM 80 MG/0.8 ML SYRINGE SUBCUT ONE (04:45)
[2020-03-22] MEDS ORDERED: MAGNESIUM SULFATE 50 ML IV PRN (06:45)
[2020-03-22] MEDS ORDERED: MUPIROCIN 2% TOPICAL OINTMENT 22 GM NS PRN (06:45)
[2020-03-22] MEDS ORDERED: POTASSIUM CHLORIDE 20 MEQ TAB.PRT.SR PO PRN (06:45)
[2020-03-22] MEDS ORDERED: LORazepam 2 MG/ML VIAL IVP PRN (06:45)
[2020-03-22] MEDS ORDERED: ONDANSETRON HCL 4 MG/2 ML VIAL IVP PRN (06:45)
[2020-03-22] MEDS ORDERED: DOCUSATE SODIUM 100 MG CAPSULE PO PRN (06:45)
[2020-03-22] MEDS ORDERED: MORPHINE 2 MG/ML INJ. SYRINGE IVP PRN ×2 (06:45)
[2020-03-22] MEDS ORDERED: ZOLPIDEM TARTRATE 5 MG TABLET PO PRN (06:45)
[2020-03-22] MEDS: cefTRIAXone 1 GM in D5W 50 ML IV SCH (07:28)
[2020-03-22] MEDS ORDERED: cefTRIAXone 1 GM VIAL ONE (07:41)
[2020-03-22 08:02] VITALS: BP_SYST 125
[2020-03-22] MEDS ORDERED: HEPARIN SODIUM,PORCINE 5000 UNITS/ML VIAL IVP ONE (08:45)
[2020-03-22] MEDS ORDERED: HEPARIN 25,000 UNITS/D5W 250ML 250 ML IV PRN (08:45)
[2020-03-22] MEDS ORDERED: HEPARIN SODIUM,PORCINE 2000 UNITS/0.4 ML BOLUS IVP PRN (08:45)
[2020-03-22] MEDS ORDERED: HEPARIN SODIUM,PORCINE 3000 UNITS/0.6 ML BOLUS IVP PRN (08:45)
[2020-03-22] MEDS ORDERED: HEPARIN 25,000 UNITS in 250 ML PREMIX IV PRN (08:45)
[2020-03-22] MEDS ORDERED: CLOPIDOGREL BISULFATE 75 MG TABLET PO SCH (09:00)
[2020-03-22] MEDS: FUROSEMIDE 40 MG/4 ML VIAL IVP SCH (09:31)
[2020-03-22] MEDS: ASPIRIN 81 MG TABLET(ECOTRIN) PO SCH (09:32)
[2020-03-22] MEDS: CARVEDILOL 6.25 MG TABLET (COREG) PO SCH ×2 (09:33→20:34)
[2020-03-22] MEDS: ATORVASTATIN 20 MG TABLET PO SCH (09:33)
[2020-03-22] MEDS: ACETAMINOPHEN 325 MG TABLET PO PRN ×2 (10:14→20:33)
[2020-03-22 12:05] VITALS: BP_SYST 116
[2020-03-22] MEDS ORDERED: APIXABAN 2.5 MG TABLET PO SCH (12:45)
[2020-03-22] MEDS ORDERED: MILK OF MAGNESIA 30 ML UDC PO PRN (12:45)
[2020-03-22] MEDS ORDERED: APIXABAN 2.5 MG TABLET PO ONE (14:00)
[2020-03-22] MEDS ORDERED: MORPHINE SULFATE 10 MG/ML VIAL IVP PRN ×2 (15:52)
[2020-03-22 16:12] VITALS: BP_SYST 147
[2020-03-22 20:00] VITALS: BP_SYST 142
[2020-03-22] MEDS: APIXABAN 2.5 MG TABLET PO SCH (20:33)
[2020-03-22 21:34] LABS: BILIRUBIN,URINE NEGATIVE (NEGATIVE); BLOOD, URINE 2+ (NEGATIVE); COLOR,URINE YELLOW (YELLOW); GLUCOSE,URINE NEGATIVE (NEGATIVE); KETONES,URINE NEGATIVE (NEGATIVE); LEUKOCYTE ESTERASE ,URINE NEGATIVE (NEGATIVE); NITRITE, URINE NEGATIVE (NEGATIVE); PROTEIN URINE 2+ (NEGATIVE); UROBILINOGEN,URINE 0.2 (0.2-1.0)
[2020-03-22 22:11] LABS: CLARITY/URINE HAZY (CLEAR)
[2020-03-22 22:27] LABS: BACTERIA,URINE FEW /HPF (None Seen)
[2020-03-23 00:26] VITALS: BP_SYST 137
[2020-03-23] MEDS: cefTRIAXone 1 GM in D5W 50 ML IV SCH (05:52)
[2020-03-23] MEDS: LEVOTHYROXINE SODIUM 0.025 MG TABLET PO SCH (05:52)
[2020-03-23 07:02] LABS: BASOPHILS % (AUTO) 0.5 % (0.0-2.0); EOSINOPHILS # (AUTO) 0.1 K/uL (0.0-0.4); EOSINOPHILS % (AUTO) 2.7 % (0.0-4.0); HEMATOCRIT 29.5 % (36-54); HEMOGLOBIN 9.9 g/dL (14.0-18.0); LYMPHOCYTES # (AUTO) 0.7 K/uL (1.0-5.5); LYMPHOCYTES % (AUTO) 19.7 % (20.5-51.5); MEAN CORPUSCULAR HEMOGLOBIN 29 pg (27-31); MEAN CORPUSCULAR HGB CONC 34 % (32-36); MEAN CORPUSCULAR VOLUME 85 fL (79.0-98.0); MONOCYTES # (AUTO) 0.4 K/uL (0.0-1.0); NEUTROPHILS # (AUTO) 2.4 K/uL (1.8-7.7); NEUTROPHILS % (AUTO) 67.1 % (40.0-70.0); PLATELET COUNT (AUTO) 142 K/uL (130-430); RED BLOOD CELL COUNT(AUTO) 3.46 MIL/uL (4.2-6.2); RED CELL DISTRIBUTION WIDTH 14.3 % (9.0-15.0); WHITE BLOOD COUNT (AUTO) 3.5 K/uL (4.8-10.8)
[2020-03-23 07:12] LABS: ANION GAP 8 (5-15); CALCIUM 8.6 mg/dL (8.4-11.0); CHLORIDE 98 mmol/L (98-107); CREATININE 2.32 mg/dL (0.55-1.30); GLUCOSE 189 mg/dL (70-99); POTASSIUM 3.7 mmol/L (3.5-5.1); SODIUM SERUM 133 mmol/L (136-145); UREA NITROGEN, BLOOD 74 mg/dL (8-21)
[2020-03-23 07:50] VITALS: BP_SYST 140
[2020-03-23] MEDS: FUROSEMIDE 40 MG/4 ML VIAL IVP SCH (09:08)
[2020-03-23] MEDS: ATORVASTATIN 20 MG TABLET PO SCH (09:09)
[2020-03-23] MEDS: CARVEDILOL 6.25 MG TABLET (COREG) PO SCH ×2 (09:09→20:05)
[2020-03-23] MEDS: ASPIRIN 81 MG TABLET(ECOTRIN) PO SCH (09:09)
[2020-03-23] MEDS: APIXABAN 2.5 MG TABLET PO SCH ×2 (09:13→20:08)
[2020-03-23 12:10] VITALS: BP_SYST 128
[2020-03-23 12:33] LABS: URINE SODIUM, RANDOM 94 mmol/L (40-220)
[2020-03-23] MEDS ORDERED: hydrALAZINE HCL 25 MG TABLET PO ONE (13:00)
[2020-03-23] MEDS ORDERED: ISOSORBIDE MONONITRATE 30 MG TAB.ER.24H PO ONE (14:00)
[2020-03-23 16:10] VITALS: BP_SYST 137
[2020-03-23] MEDS: ACETAMINOPHEN 325 MG TABLET PO PRN (19:49)
[2020-03-23 20:00] VITALS: BP_SYST 104
[2020-03-23] MEDS: hydrALAZINE HCL 25 MG TABLET PO SCH (20:05)
[2020-03-24 01:20] VITALS: BP_SYST 122
[2020-03-24 05:24] VITALS: BP_SYST 123
[2020-03-24] MEDS: cefTRIAXone 1 GM in D5W 50 ML IV SCH ×3 (05:35→08:17)
[2020-03-24] MEDS: LEVOTHYROXINE SODIUM 0.025 MG TABLET PO SCH (05:35)
[2020-03-24 06:01] LABS: BASOPHILS % (AUTO) 0.5 % (0.0-2.0); EOSINOPHILS # (AUTO) 0.1 K/uL (0.0-0.4); EOSINOPHILS % (AUTO) 1.8 % (0.0-4.0); HEMATOCRIT 27.8 % (36-54); HEMOGLOBIN 9.4 g/dL (14.0-18.0); LYMPHOCYTES % (AUTO) 23.1 % (20.5-51.5); MEAN CORPUSCULAR HEMOGLOBIN 29 pg (27-31); MEAN CORPUSCULAR HGB CONC 34 % (32-36); MEAN CORPUSCULAR VOLUME 85 fL (79.0-98.0); MONOCYTES # (AUTO) 0.5 K/uL (0.0-1.0); MONOCYTES % (AUTO) 11.8 % (1.7-9.3); NEUTROPHILS # (AUTO) 2.7 K/uL (1.8-7.7); NEUTROPHILS % (AUTO) 62.8 % (40.0-70.0); PLATELET COUNT (AUTO) 140 K/uL (130-430); RED BLOOD CELL COUNT(AUTO) 3.26 MIL/uL (4.2-6.2); RED CELL DISTRIBUTION WIDTH 14.1 % (9.0-15.0); WHITE BLOOD COUNT (AUTO) 4.2 K/uL (4.8-10.8)
[2020-03-24 06:33] LABS: ALANINE AMINOTRANSFERASE 44 U/L (12-78); ANION GAP 11 (5-15); ASPARTATE AMINOTRANSFERASE 31 U/L (10-37); CALCIUM 8.4 mg/dL (8.4-11.0); CHLORIDE 95 mmol/L (98-107); CREATININE 2.77 mg/dL (0.55-1.30); GLUCOSE 160 mg/dL (70-99); POTASSIUM 3.6 mmol/L (3.5-5.1); SODIUM SERUM 131 mmol/L (136-145); TOTAL BILIRUBIN 0.5 mg/dL (0.0-1.0); UREA NITROGEN, BLOOD 82 mg/dL (8-21)
[2020-03-24 08:00] VITALS: BP_SYST 110
[2020-03-24] MEDS: ATORVASTATIN 20 MG TABLET PO SCH (08:17)
[2020-03-24] MEDS: APIXABAN 2.5 MG TABLET PO SCH (08:18)
[2020-03-24] MEDS: hydrALAZINE HCL 25 MG TABLET PO SCH (08:19)
[2020-03-24] MEDS: ASPIRIN 81 MG TABLET(ECOTRIN) PO SCH (08:19)
[2020-03-24] MEDS: CARVEDILOL 6.25 MG TABLET (COREG) PO SCH (08:20)
[2020-03-24] MEDS: FUROSEMIDE 40 MG/4 ML VIAL IVP SCH (08:21)
[2020-03-24] MEDS ORDERED: ISOSORBIDE MONONITRATE 30 MG TAB.ER.24H PO SCH (09:00)
[2020-03-24] MEDS ORDERED: APIX5TAB PO (10:02)
[2020-03-24] MEDS ORDERED: ISOS30TA6 PO (10:02)
[2020-03-24 12:20] VITALS: BP_SYST 96
[2020-03-24 12:36] VITALS: BP_SYST 111
[2020-03-24 16:39] VITALS: BP_SYST 111
== END 2020-03-24 17:25 | disposition home or self-care (01) | DRG 190 ==
LOC: SED 00:34 → STU 05:50
PROVIDERS: ADMIT General Practice; ATTEND General Practice
DX: I21.A1 Myocardial infarction type 2 (principal); N17.0 Acute kidney failure with tubular necrosis; I50.43 Acute on chronic combined systolic (congestive) and diastolic (congestive) heart failure; I82.413 Acute embolism and thrombosis of femoral vein, bilateral; I13.0 Hypertensive heart and chronic kidney disease with heart failure and stage 1 through stage 4 chronic kidney disease, or unspecified chronic kidney disease; E44.1 Mild protein-calorie malnutrition; N39.0 Urinary tract infection, site not specified; E03.9 Hypothyroidism, unspecified; E78.5 Hyperlipidemia, unspecified; I25.10 Atherosclerotic heart disease of native coronary artery without angina pectoris; I25.5 Ischemic cardiomyopathy; N18.3 Chronic kidney disease, stage 3 (moderate); E78.00 Pure hypercholesterolemia, unspecified; R94.31 Abnormal electrocardiogram [ECG] [EKG]; J91.8 Pleural effusion in other conditions classified elsewhere; K74.60 Unspecified cirrhosis of liver; Z86.73 Personal history of transient ischemic attack (TIA), and cerebral infarction without residual deficits; Z91.19 Patient's noncompliance with other medical treatment and regimen; Z68.31 Body mass index [BMI] 31.0-31.9, adult; Z79.82 Long term (current) use of aspirin; Z79.899 Other long term (current) drug therapy; Z85.3 Personal history of malignant neoplasm of breast
CPT/HCPCS: 36415; 71045; 76770; 80048; 80053; 81000-TC; 82570-TC; 83036; 83735-TC; 83880; 83935-TC; 84302-TC; 84484; 85007; 85025; 85027; 85379; 85610-TC; 85730-TC; 87086; 93005; 93970; 96372; 96374; 99285; G0378; J0696; J1644; J1650; J1940; J2060; J7060

== ENCOUNTER 2020-08-22 13:55 | Inpatient (IN) | payer MEDICAID, MEDICARE, SELFPAY ==
[~2020-08-22] VITALS: Ht 170.2 cm; Wt 80.7 kg
[~2020-08-22 13:55] MED LIST changes: +ACET325T53 PO; +APIX2.5T PO; -ASPI-1153 PO; +ASPI-1393 PO; -CLOP75TA32 PO; +EPOE200011 SUBCUT; +FOLI-43 PO; -FURO-150 PO; +GLIP5TAB26 PO; +ISOS30TA6 PO; -LEVO25TA7 PO; +TRAM100T28 PO; +[UNRECOGNIZED DRUG - CODE] IV
[2020-08-22] MEDS ORDERED: cefTRIAXone 1 GM IVPB PREMIX 50 ML IV ONE (14:00)
[2020-08-22 14:27] VITALS: BP_SYST 103
[2020-08-22 14:46] LABS: BASOPHILS # (AUTO) 0.1 K/uL (0.0-0.2); EOSINOPHILS % (AUTO) 0.2 % (0.0-4.0); HEMATOCRIT 34.4 % (36-54); HEMOGLOBIN 11.8 g/dL (14.0-18.0); LYMPHOCYTES # (AUTO) 0.5 K/uL (1.0-5.5); LYMPHOCYTES % (AUTO) 5.1 % (20.5-51.5); MEAN CORPUSCULAR HEMOGLOBIN 28 pg (27-31); MEAN CORPUSCULAR HGB CONC 34 % (32-36); MEAN CORPUSCULAR VOLUME 83 fL (79.0-98.0); MONOCYTES # (AUTO) 0.4 K/uL (0.0-1.0); MONOCYTES % (AUTO) 3.6 % (1.7-9.3); NEUTROPHILS # (AUTO) 9.6 K/uL (1.8-7.7); NEUTROPHILS % (AUTO) 90.1 % (40.0-70.0); PLATELET COUNT (AUTO) 248 K/uL (130-430); RED BLOOD CELL COUNT(AUTO) 4.16 MIL/uL (4.2-6.2); RED CELL DISTRIBUTION WIDTH 15.8 % (9.0-15.0); WHITE BLOOD COUNT (AUTO) 10.7 K/uL (4.8-10.8)
[2020-08-22 14:47] LABS: ANION GAP 13 (5-15); CALCIUM 8.9 mg/dL (8.4-11.0); CHLORIDE 103 mmol/L (98-107); CREATININE 1.77 mg/dL (0.55-1.30); GLUCOSE 239 mg/dL (70-99); POTASSIUM 4.1 mmol/L (3.5-5.1); SODIUM SERUM 137 mmol/L (136-145); UREA NITROGEN, BLOOD 47 mg/dL (8-21)
[2020-08-22 14:54] LABS: ALANINE AMINOTRANSFERASE 14 U/L (12-78); ALBUMIN 2.9 g/dL (3.4-4.8); ASPARTATE AMINOTRANSFERASE 28 U/L (10-37); TOTAL BILIRUBIN 0.9 mg/dL (0.0-1.0)
[2020-08-22 14:56] LABS: ALCOHOL, BLOOD < 3 mg/dL (<10)
[2020-08-22 15:18] LABS: BILIRUBIN,URINE NEGATIVE (NEGATIVE); CLARITY/URINE SL CLOUDY (CLEAR); COLOR,URINE YELLOW (YELLOW); GLUCOSE,URINE NEGATIVE (NEGATIVE); KETONES,URINE NEGATIVE (NEGATIVE); LEUKOCYTE ESTERASE ,URINE 1+ (NEGATIVE); NITRITE, URINE NEGATIVE (NEGATIVE); PH,URINE 5.5 (5.0-8.0); PROTEIN URINE 2+ (NEGATIVE)
[2020-08-22] MEDS ORDERED: NACL 0.9% 1,000 ML IV ONE (15:30)
[2020-08-22] MEDS ORDERED: MORPHINE 2 MG/ML INJ. SYRINGE IVP ONE (15:30)
[2020-08-22 15:37] LABS: BLOOD, URINE TRACE (NEGATIVE)
[2020-08-22 15:42] LABS: BACTERIA,URINE MANY /HPF (None Seen); YEAST,URINE Moderate /HPF (None Seen)
[2020-08-22 15:43] LABS: MUCUS,URINE None Seen /LPF (None Seen)
[2020-08-22 15:44] LABS: BARBITURATE, URINE NEGATIVE (NEG <=200); BENZODIAZEPINE, URINE NEGATIVE (NEG <=150); CANNABINOID, URINE NEGATIVE (NEG <=50); COCAINE, URINE NEGATIVE (NEG <=150); METHAMPHETAMINES SCREEN,URINE NEGATIVE (NEG <=500); OPIATE, URINE NEGATIVE (NEG <=100); PHENCYCLIDINE SCREEN,URINE NEGATIVE (NEG <=25); UR TRICYCLIC ANTIDEPRESSANTS NEGATIVE (NEG <=300); URINE AMPHETAMINE NEGATIVE (NEG <=500); URINE METHADONE NEGATIVE (NEG <=200); URINE OXYCODONE SCREEN NEGATIVE (NEG <=100); URINE PROPOXYPHENE SCREEN NEGATIVE (NEG <=300)
[2020-08-22] MEDS ORDERED: LORazepam 2 MG/ML VIAL IVP ONE (16:15)
[2020-08-22] MEDS ORDERED: LEVOFLOXACIN 500 MG/D5W 100 ML IV ONE (16:30)
[2020-08-22 17:14] VITALS: BP_SYST 119
[2020-08-22] MEDS ORDERED: FLU VACC QS2020-21(65UP)/PF 0.7 ML/SYRINGE I.M. PRN (17:45)
[2020-08-22 20:00] VITALS: BP_SYST 143
[2020-08-23] VITALS (10 sets, daily range): BP systolic 66–138
[2020-08-23 07:37] LABS: BILIRUBIN,URINE NEGATIVE (NEGATIVE); BLOOD, URINE 3+ (NEGATIVE); CLARITY/URINE TURBID (CLEAR); COLOR,URINE YELLOW (YELLOW); GLUCOSE,URINE NEGATIVE (NEGATIVE); KETONES,URINE TRACE (NEGATIVE); LEUKOCYTE ESTERASE ,URINE 2+ (NEGATIVE); NITRITE, URINE NEGATIVE (NEGATIVE); PH,URINE 5.5 (5.0-8.0); PROTEIN URINE 3+ (NEGATIVE); UROBILINOGEN,URINE 0.2 (0.2-1.0)
[2020-08-23 07:47] LABS: BACTERIA,URINE MANY /HPF (None Seen); RBC,URINE 20-50 /HPF (0-3); WBC,URINE >100 /HPF (0-3)
[2020-08-23 08:17] LABS: ALANINE AMINOTRANSFERASE 15 U/L (12-78); ALBUMIN 2.6 g/dL (3.4-4.8); ANION GAP 11 (5-15); ASPARTATE AMINOTRANSFERASE 20 U/L (10-37); CALCIUM 8.6 mg/dL (8.4-11.0); CHLORIDE 105 mmol/L (98-107); CREATININE 1.94 mg/dL (0.55-1.30); GLUCOSE 241 mg/dL (70-99); POTASSIUM 4.1 mmol/L (3.5-5.1); SODIUM SERUM 138 mmol/L (136-145); TOTAL BILIRUBIN 0.6 mg/dL (0.0-1.0); UREA NITROGEN, BLOOD 52 mg/dL (8-21)
[2020-08-23] MEDS: LEVOFLOXACIN 250 MG/D5W 50 ML IV SCH (09:19)
[2020-08-23] MEDS ORDERED: NS 500 ML IV ONE ×2 (10:45→20:15)
[2020-08-23] MEDS ORDERED: CARVEDILOL 6.25 MG TABLET (COREG) PO ONE (11:00)
[2020-08-23] MEDS ORDERED: ASPIRIN 81 MG TABLET(ECOTRIN) PO ONE (11:00)
[2020-08-23] MEDS ORDERED: APIXABAN 2.5 MG TABLET PO ONE (11:00)
[2020-08-23] MEDS ORDERED: ATORVASTATIN 20 MG TABLET PO ONE (15:30)
[2020-08-23] MEDS ORDERED: FOLIC ACID 1 MG TABLET PO ONE (15:30)
[2020-08-23] MEDS ORDERED: ISOSORBIDE MONONITRATE 30 MG TAB.ER.24H PO ONE (15:30)
[2020-08-23] MEDS: SOD FERRIC GLUC COMPLEX/SUC 125 MG in NS 100 ML IV SCH (15:46)
[2020-08-23] MEDS ORDERED: ALBUMIN HUMAN 25% 100 ML IV ONE ×4 (18:15→19:24)
[2020-08-23] MEDS ORDERED: NS 250 ML IV ONE (19:00)
[2020-08-23] MEDS: CARVEDILOL 6.25 MG TABLET (COREG) PO SCH (21:00)
[2020-08-23] MEDS: APIXABAN 2.5 MG TABLET PO SCH (21:34)
[2020-08-23] MEDS: glipiZIDE XL 5 MG TAB ( GLUCOTROL XL) PO SCH (21:35)
[2020-08-23] MEDS ORDERED: NOREPINEPHRINE 4 MG/4 ML VIAL IV ONE (23:36)
[2020-08-23] MEDS: NOREPINEPHRINE BITARTRATE 4 MG in NS 246 ML IV PRN (23:38)
[2020-08-24] VITALS (24 sets, daily range): BP systolic 98–149
[2020-08-24 06:16] LABS: BASOPHILS # (AUTO) 0.1 K/uL (0.0-0.2); BASOPHILS % (AUTO) 0.7 % (0.0-2.0); EOSINOPHILS # (AUTO) 0.2 K/uL (0.0-0.4); EOSINOPHILS % (AUTO) 2.5 % (0.0-4.0); HEMATOCRIT 27.6 % (36-54); HEMOGLOBIN 9.4 g/dL (14.0-18.0); LYMPHOCYTES # (AUTO) 1.1 K/uL (1.0-5.5); MEAN CORPUSCULAR HEMOGLOBIN 29 pg (27-31); MEAN CORPUSCULAR HGB CONC 34 % (32-36); MEAN CORPUSCULAR VOLUME 85 fL (79.0-98.0); MONOCYTES # (AUTO) 0.5 K/uL (0.0-1.0); MONOCYTES % (AUTO) 6.4 % (1.7-9.3); NEUTROPHILS % (AUTO) 76.4 % (40.0-70.0); PLATELET COUNT (AUTO) 176 K/uL (130-430); RED BLOOD CELL COUNT(AUTO) 3.27 MIL/uL (4.2-6.2); WHITE BLOOD COUNT (AUTO) 7.8 K/uL (4.8-10.8)
[2020-08-24 07:42] LABS: ALANINE AMINOTRANSFERASE 12 U/L (12-78); ALBUMIN 3.1 g/dL (3.4-4.8); ANION GAP 9 (5-15); ASPARTATE AMINOTRANSFERASE 13 U/L (10-37); CALCIUM 8.1 mg/dL (8.4-11.0); CHLORIDE 106 mmol/L (98-107); CREATININE 2.04 mg/dL (0.55-1.30); GLUCOSE 74 mg/dL (70-99); POTASSIUM 3.4 mmol/L (3.5-5.1); SODIUM SERUM 138 mmol/L (136-145); TOTAL BILIRUBIN 0.6 mg/dL (0.0-1.0); UREA NITROGEN, BLOOD 61 mg/dL (8-21)
[2020-08-24] MEDS ORDERED: SOD FERRIC GLUC COMPLEX/SUC 62.5 MG/5 ML VIAL (FERRLECIT) IV SCH (09:00)
[2020-08-24] MEDS: CARVEDILOL 6.25 MG TABLET (COREG) PO SCH ×2 (09:00→22:51)
[2020-08-24] MEDS: glipiZIDE XL 5 MG TAB ( GLUCOTROL XL) PO SCH ×2 (09:32→21:00)
[2020-08-24] MEDS: ASPIRIN 81 MG TABLET(ECOTRIN) PO SCH (09:34)
[2020-08-24] MEDS: ATORVASTATIN 20 MG TABLET PO SCH (09:34)
[2020-08-24] MEDS: FOLIC ACID 1 MG TABLET PO SCH (09:34)
[2020-08-24] MEDS: ISOSORBIDE MONONITRATE 30 MG TAB.ER.24H PO SCH (09:34)
[2020-08-24] MEDS: APIXABAN 2.5 MG TABLET PO SCH ×2 (09:36→22:53)
[2020-08-24] MEDS: LEVOFLOXACIN 250 MG/D5W 50 ML IV SCH (09:37)
[2020-08-24] MEDS ORDERED: NS 500 ML IV ONE (10:30)
[2020-08-24] MEDS: SOD FERRIC GLUC COMPLEX/SUC 125 MG in NS 100 ML IV SCH (16:03)
[2020-08-24] MEDS: NOREPINEPHRINE BITARTRATE 4 MG in NS 246 ML IV PRN (17:25)
[2020-08-24] MEDS ORDERED: DEXTROSE 50% JECT 50 ML DISP.SYRIN ONE (21:23)
[2020-08-25] VITALS (24 sets, daily range): BP systolic 91–150
[2020-08-25] MEDS: D5/0.45 NS 1,000 ML IV SCH ×2 (06:10→21:50)
[2020-08-25 06:23] LABS: BASOPHILS % (AUTO) 0.3 % (0.0-2.0); EOSINOPHILS # (AUTO) 0.1 K/uL (0.0-0.4); EOSINOPHILS % (AUTO) 2.8 % (0.0-4.0); HEMATOCRIT 28.5 % (36-54); HEMOGLOBIN 9.7 g/dL (14.0-18.0); LYMPHOCYTES # (AUTO) 0.9 K/uL (1.0-5.5); MEAN CORPUSCULAR HEMOGLOBIN 29 pg (27-31); MEAN CORPUSCULAR HGB CONC 34 % (32-36); MEAN CORPUSCULAR VOLUME 84 fL (79.0-98.0); MONOCYTES # (AUTO) 0.5 K/uL (0.0-1.0); MONOCYTES % (AUTO) 9.6 % (1.7-9.3); NEUTROPHILS # (AUTO) 3.8 K/uL (1.8-7.7); NEUTROPHILS % (AUTO) 70.3 % (40.0-70.0); PLATELET COUNT (AUTO) 170 K/uL (130-430); WHITE BLOOD COUNT (AUTO) 5.4 K/uL (4.8-10.8)
[2020-08-25 06:34] LABS: ALANINE AMINOTRANSFERASE 14 U/L (12-78); ALBUMIN 2.9 g/dL (3.4-4.8); ANION GAP 8 (5-15); ASPARTATE AMINOTRANSFERASE 16 U/L (10-37); CALCIUM 8.4 mg/dL (8.4-11.0); CHLORIDE 109 mmol/L (98-107); CREATININE 1.73 mg/dL (0.55-1.30); GLUCOSE 68 mg/dL (70-99); POTASSIUM 3.5 mmol/L (3.5-5.1); SODIUM SERUM 143 mmol/L (136-145); TOTAL BILIRUBIN 0.6 mg/dL (0.0-1.0); UREA NITROGEN, BLOOD 56 mg/dL (8-21)
[2020-08-25] MEDS: FOLIC ACID 1 MG TABLET PO SCH (08:51)
[2020-08-25] MEDS: ISOSORBIDE MONONITRATE 30 MG TAB.ER.24H PO SCH (08:51)
[2020-08-25] MEDS: ATORVASTATIN 20 MG TABLET PO SCH (08:51)
[2020-08-25] MEDS: ASPIRIN 81 MG TABLET(ECOTRIN) PO SCH (08:52)
[2020-08-25] MEDS: CARVEDILOL 6.25 MG TABLET (COREG) PO SCH ×2 (08:52→21:04)
[2020-08-25] MEDS: APIXABAN 2.5 MG TABLET PO SCH ×2 (08:52→21:07)
[2020-08-25] MEDS: glipiZIDE XL 5 MG TAB ( GLUCOTROL XL) PO SCH (09:00)
[2020-08-25] MEDS: MEROPENEM 500 MG in NS 50 ML IV SCH ×2 (14:07→21:43)
[2020-08-25] MEDS: SOD FERRIC GLUC COMPLEX/SUC 125 MG in NS 100 ML IV SCH (16:41)
[2020-08-25] MEDS: INSULIN REGULAR, HUMAN 100 UNITS/ML, 10 ML VIAL (humuLIN R) SUBCUT PRN (18:10)
[2020-08-25] MEDS: MIDODRINE HCL 5 MG TABLET (PROAMATINE) PO SCH (21:03)
[2020-08-25] MEDS: ACETAMINOPHEN 325 MG TABLET PO PRN (21:07)
[2020-08-26] VITALS (19 sets, daily range): BP systolic 108–131
[2020-08-26] MEDS: MEROPENEM 500 MG in NS 50 ML IV SCH ×3 (06:52→22:24)
[2020-08-26] MEDS: CARVEDILOL 6.25 MG TABLET (COREG) PO SCH ×2 (08:40→20:37)
[2020-08-26] MEDS: ISOSORBIDE MONONITRATE 30 MG TAB.ER.24H PO SCH (08:40)
[2020-08-26] MEDS: MIDODRINE HCL 5 MG TABLET (PROAMATINE) PO SCH ×2 (09:28→20:36)
[2020-08-26] MEDS: ATORVASTATIN 20 MG TABLET PO SCH (09:28)
[2020-08-26] MEDS: APIXABAN 2.5 MG TABLET PO SCH ×2 (09:28→20:39)
[2020-08-26] MEDS: FOLIC ACID 1 MG TABLET PO SCH (09:28)
[2020-08-26] MEDS: ASPIRIN 81 MG TABLET(ECOTRIN) PO SCH (09:29)
[2020-08-26] MEDS: INSULIN REGULAR, HUMAN 100 UNITS/ML, 10 ML VIAL (humuLIN R) SUBCUT PRN (11:56)
[2020-08-26] MEDS: SOD FERRIC GLUC COMPLEX/SUC 125 MG in NS 100 ML IV SCH (15:41)
[2020-08-26] MEDS: D5/0.45 NS 1,000 ML IV SCH (22:24)
[2020-08-27 00:15] VITALS: BP_SYST 123
[2020-08-27] MEDS: INSULIN REGULAR, HUMAN 100 UNITS/ML, 10 ML VIAL (humuLIN R) SUBCUT PRN ×2 (00:15→12:41)
[2020-08-27] MEDS: ACETAMINOPHEN 325 MG TABLET PO PRN ×2 (00:24→21:07)
[2020-08-27 06:29] LABS: BASOPHILS % (AUTO) 0.6 % (0.0-2.0); EOSINOPHILS # (AUTO) 0.1 K/uL (0.0-0.4); EOSINOPHILS % (AUTO) 2.9 % (0.0-4.0); HEMATOCRIT 28.3 % (36-54); HEMOGLOBIN 9.5 g/dL (14.0-18.0); LYMPHOCYTES # (AUTO) 0.7 K/uL (1.0-5.5); LYMPHOCYTES % (AUTO) 16.4 % (20.5-51.5); MEAN CORPUSCULAR HEMOGLOBIN 29 pg (27-31); MEAN CORPUSCULAR HGB CONC 34 % (32-36); MEAN CORPUSCULAR VOLUME 85 fL (79.0-98.0); MONOCYTES # (AUTO) 0.4 K/uL (0.0-1.0); MONOCYTES % (AUTO) 10.5 % (1.7-9.3); NEUTROPHILS # (AUTO) 2.9 K/uL (1.8-7.7); NEUTROPHILS % (AUTO) 69.6 % (40.0-70.0); PLATELET COUNT (AUTO) 127 K/uL (130-430); RED BLOOD CELL COUNT(AUTO) 3.35 MIL/uL (4.2-6.2); RED CELL DISTRIBUTION WIDTH 15.8 % (9.0-15.0); WHITE BLOOD COUNT (AUTO) 4.1 K/uL (4.8-10.8)
[2020-08-27] MEDS: MEROPENEM 500 MG in NS 50 ML IV SCH ×3 (06:37→21:56)
[2020-08-27 07:08] LABS: ALANINE AMINOTRANSFERASE 12 U/L (12-78); ALBUMIN 2.8 g/dL (3.4-4.8); ANION GAP 8 (5-15); ASPARTATE AMINOTRANSFERASE 14 U/L (10-37); CALCIUM 8.4 mg/dL (8.4-11.0); CHLORIDE 107 mmol/L (98-107); CREATININE 1.39 mg/dL (0.55-1.30); GLUCOSE 127 mg/dL (70-99); POTASSIUM 3.8 mmol/L (3.5-5.1); SODIUM SERUM 139 mmol/L (136-145); TOTAL BILIRUBIN 0.6 mg/dL (0.0-1.0); UREA NITROGEN, BLOOD 41 mg/dL (8-21)
[2020-08-27 08:00] VITALS: BP_SYST 129
[2020-08-27] MEDS: ASPIRIN 81 MG TABLET(ECOTRIN) PO SCH (09:47)
[2020-08-27] MEDS: FOLIC ACID 1 MG TABLET PO SCH (09:48)
[2020-08-27] MEDS: MIDODRINE HCL 5 MG TABLET (PROAMATINE) PO SCH ×2 (09:48→21:00)
[2020-08-27] MEDS: CARVEDILOL 6.25 MG TABLET (COREG) PO SCH ×2 (09:48→20:59)
[2020-08-27] MEDS: ISOSORBIDE MONONITRATE 30 MG TAB.ER.24H PO SCH (09:49)
[2020-08-27] MEDS: APIXABAN 2.5 MG TABLET PO SCH ×2 (09:49→21:01)
[2020-08-27] MEDS: ATORVASTATIN 20 MG TABLET PO SCH (09:49)
[2020-08-27 12:00] VITALS: BP_SYST 100
[2020-08-27] MEDS: SOD FERRIC GLUC COMPLEX/SUC 125 MG in NS 100 ML IV SCH (15:37)
[2020-08-27 16:00] VITALS: BP_SYST 114
[2020-08-27 20:00] VITALS: BP_SYST 106
[2020-08-28] MEDS: D5/0.45 NS 1,000 ML IV SCH ×2 (00:18→22:42)
[2020-08-28 01:05] VITALS: BP_SYST 123
[2020-08-28 08:00] VITALS: BP_SYST 125
[2020-08-28] MEDS: ISOSORBIDE MONONITRATE 30 MG TAB.ER.24H PO SCH (08:46)
[2020-08-28] MEDS: ATORVASTATIN 20 MG TABLET PO SCH (08:47)
[2020-08-28] MEDS: CARVEDILOL 6.25 MG TABLET (COREG) PO SCH ×2 (08:47→20:28)
[2020-08-28] MEDS: ASPIRIN 81 MG TABLET(ECOTRIN) PO SCH (08:48)
[2020-08-28] MEDS: APIXABAN 2.5 MG TABLET PO SCH ×2 (08:48→20:26)
[2020-08-28] MEDS: FOLIC ACID 1 MG TABLET PO SCH (08:48)
[2020-08-28] MEDS: MIDODRINE HCL 5 MG TABLET (PROAMATINE) PO SCH ×2 (08:48→20:26)
[2020-08-28] MEDS: MEROPENEM 500 MG in NS 50 ML IV SCH ×3 (10:16→22:42)
[2020-08-28 12:00] VITALS: BP_SYST 113
[2020-08-28] MEDS: ACETAMINOPHEN 325 MG TABLET PO PRN ×2 (12:10→18:19)
[2020-08-28] MEDS: INSULIN REGULAR, HUMAN 100 UNITS/ML, 10 ML VIAL (humuLIN R) SUBCUT PRN (12:10)
[2020-08-28] MEDS: SOD FERRIC GLUC COMPLEX/SUC 125 MG in NS 100 ML IV SCH (16:14)
[2020-08-28 17:40] VITALS: BP_SYST 99
[2020-08-28 18:12] LABS: BASOPHILS % (AUTO) 0.9 % (0.0-2.0); EOSINOPHILS # (AUTO) 0.3 K/uL (0.0-0.4); HEMATOCRIT 26.1 % (36-54); HEMOGLOBIN 8.8 g/dL (14.0-18.0); LYMPHOCYTES # (AUTO) 0.8 K/uL (1.0-5.5); LYMPHOCYTES % (AUTO) 18.8 % (20.5-51.5); MEAN CORPUSCULAR HEMOGLOBIN 29 pg (27-31); MEAN CORPUSCULAR HGB CONC 34 % (32-36); MEAN CORPUSCULAR VOLUME 86 fL (79.0-98.0); MONOCYTES # (AUTO) 0.5 K/uL (0.0-1.0); MONOCYTES % (AUTO) 11.9 % (1.7-9.3); NEUTROPHILS # (AUTO) 2.5 K/uL (1.8-7.7); NEUTROPHILS % (AUTO) 61.4 % (40.0-70.0); PLATELET COUNT (AUTO) 121 K/uL (130-430); RED BLOOD CELL COUNT(AUTO) 3.06 MIL/uL (4.2-6.2); RED CELL DISTRIBUTION WIDTH 16.1 % (9.0-15.0); WHITE BLOOD COUNT (AUTO) 4.1 K/uL (4.8-10.8)
[2020-08-28 18:29] LABS: ALANINE AMINOTRANSFERASE 14 U/L (12-78); ALBUMIN 2.4 g/dL (3.4-4.8); ANION GAP 8 (5-15); ASPARTATE AMINOTRANSFERASE 11 U/L (10-37); CALCIUM 7.9 mg/dL (8.4-11.0); CHLORIDE 106 mmol/L (98-107); GLUCOSE 136 mg/dL (70-99); POTASSIUM 4.1 mmol/L (3.5-5.1); SODIUM SERUM 138 mmol/L (136-145); TOTAL BILIRUBIN 0.9 mg/dL (0.0-1.0); UREA NITROGEN, BLOOD 41 mg/dL (8-21)
[2020-08-28 20:05] VITALS: BP_SYST 111
[2020-08-29 00:30] VITALS: BP_SYST 130
[2020-08-29] MEDS: MEROPENEM 500 MG in NS 50 ML IV SCH ×2 (04:58→13:26)
[2020-08-29] MEDS: ACETAMINOPHEN 325 MG TABLET PO PRN ×2 (06:05→09:57)
[2020-08-29 08:15] VITALS: BP_SYST 120
[2020-08-29] MEDS: ATORVASTATIN 20 MG TABLET PO SCH (09:46)
[2020-08-29] MEDS: ASPIRIN 81 MG TABLET(ECOTRIN) PO SCH (09:46)
[2020-08-29] MEDS: ISOSORBIDE MONONITRATE 30 MG TAB.ER.24H PO SCH (09:46)
[2020-08-29] MEDS: FOLIC ACID 1 MG TABLET PO SCH (09:48)
[2020-08-29] MEDS: MIDODRINE HCL 5 MG TABLET (PROAMATINE) PO SCH (09:48)
[2020-08-29] MEDS: APIXABAN 2.5 MG TABLET PO SCH (09:50)
[2020-08-29] MEDS: CARVEDILOL 6.25 MG TABLET (COREG) PO SCH (09:58)
[2020-08-29 12:25] VITALS: BP_SYST 119
[2020-08-29] MEDS ORDERED: ERTA1VIA INTRAVE052 (14:35)
[2020-08-29 14:44] VITALS: BP_SYST 119
== END 2020-08-29 15:20 | DRG 53 ==
LOC: SED 13:55 → STU 16:04 → SIC 08-23 20:19 → STU 08-26 19:03
PROVIDERS: ADMIT Internal Medicine; ATTEND Internal Medicine
PROC: 4A00X4Z Measurement of Central Nervous Electrical Activity, External Approach (ICD-10-PCS; principal; 2020-08-26)
DX: R56.9 Unspecified convulsions (principal); N39.0 Urinary tract infection, site not specified; E43 Unspecified severe protein-calorie malnutrition; N17.0 Acute kidney failure with tubular necrosis; N18.30 Chronic kidney disease, stage 3 unspecified; E78.00 Pure hypercholesterolemia, unspecified; F03.90 Unspecified dementia, unspecified severity, without behavioral disturbance, psychotic disturbance, mood disturbance, and anxiety; E78.5 Hyperlipidemia, unspecified; K74.60 Unspecified cirrhosis of liver; I42.0 Dilated cardiomyopathy; B96.5 Pseudomonas (aeruginosa) (mallei) (pseudomallei) as the cause of diseases classified elsewhere; R65.11 Systemic inflammatory response syndrome (SIRS) of non-infectious origin with acute organ dysfunction; Z20.828 Contact with and (suspected) exposure to other viral communicable diseases; I25.10 Atherosclerotic heart disease of native coronary artery without angina pectoris; I13.0 Hypertensive heart and chronic kidney disease with heart failure and stage 1 through stage 4 chronic kidney disease, or unspecified chronic kidney disease; I50.9 Heart failure, unspecified; E11.22 Type 2 diabetes mellitus with diabetic chronic kidney disease; Z68.27 Body mass index [BMI] 27.0-27.9, adult; Z88.0 Allergy status to penicillin; Z79.82 Long term (current) use of aspirin; Z79.899 Other long term (current) drug therapy; Z85.3 Personal history of malignant neoplasm of breast; Z86.73 Personal history of transient ischemic attack (TIA), and cerebral infarction without residual deficits; R64 Cachexia
CPT/HCPCS: 36415; 70450-TC; 71045; 80053; 80307; 81000-TC; 82962; 83605; 83880; 84484; 85025; 87040-TC; 87081; 87086; 93005; 93306; 95816; 96361; 96365; 96375; 99285; G0378; G0481; G0482; J0696; J1815; J1956; J2060; J2185; J2270; J2916; J7030; J7040; J7050